=== PATIENT | female | born 1970 | race African-American/Black ===

== ENCOUNTER 2018-04-21 18:51 | Emergency (ER) | payer MEDICAID, OTHER ==
[~2018-04-21] VITALS: Ht 167.6 cm; Wt 74.8 kg
[2018-04-21 20:13] LABS: Urine Bacteria NONE SEEN /hpf (None Seen); Urine Blood Negative /uL (Negative); Urine Specific Gravity 1.028 (1.001-1.035); Urine WBC <1 /hpf (0 - 5)
[2018-04-21] MEDS ORDERED: MORPHINE SULFATE 10 MG/ML INJ 1ML SDV IV ONE (20:45)
[2018-04-21] MEDS ORDERED: ONDANSETRON HCL 4 MG/2 ML VIAL IV ONE (20:45)
[2018-04-21 21:48] LABS: Basophils # (auto) 0 uL; Basophils % (auto) 0.6 % (0.0-2.0); Eosinophils # (auto) 0.1 uL; Eosinophils % (auto) 1.4 % (0.0-7.0); Hematocrit 42.5 % (36.0-46.0); Hemoglobin 13.5 g/dL (12.2-16.2); Lymphocytes # (auto) 2.4 uL; Lymphocytes % (auto) 53.6 % (10.0-50.0); Mean Corpuscular Hemoglobin 27.9 pg (28.0-32.0); Mean Corpuscular Hgb Conc. 31.7 g/dL (32.0-36.0); Mean Corpuscular Volume 87.9 fL (80.0-100.0); Monocytes # (auto) 0.5 uL; Monocytes % (auto) 10.9 % (0.0-12.0); Neutrophils # (auto) 1.5 uL; Neutrophils % (auto) 33.5 % (37.0-80.0); Nucleated Red Blood Cells % 0.1 %; Platelet Count (auto) 230 10^3/uL (140-450); Red Blood Cells 4.84 10^6/uL (4.0-5.20); Red Cell Distribution Width 13.3 % (11.8-14.3); White Blood Cell 4.6 10^3/uL (4.4-10.8)
[2018-04-21 22:05] LABS: Chloride 107 mmol/L (98-107); Potassium 3.3 mmol/L (3.5-5.1); Sodium 138 mmol/L (136-145)
[2018-04-21 22:09] LABS: Alanine Aminotransferase 17 U/L (13-56); Albumin 3.6 g/dL (3.4-5.0); Alkaline Phosphatase 53 U/L (45-117); Anion Gap 5 (5-15); Aspartate Aminotransferase 11 U/L (15-37); Bilirubin, Total 0.2 mg/dL (0.2-1.0); Blood Urea Nitrogen 13 mg/dL (7-18); Calcium 8.1 mg/dL (8.5-10.1); Carbon Dioxide 26 mmol/L (21-32); GFR African American 126 mL/min; GFR Non-African American 104 mL/min; Glucose 87 mg/dL (74-106); Total Protein 7.7 g/dL (6.4-8.2)
[2018-04-22] MEDS ORDERED: MORPHINE SULFATE 10 MG/ML INJ 1ML SDV IV ONE (01:00)
[2018-04-22 02:34] VITALS: BP 142/75
== END 2018-04-22 02:43 | disposition home or self-care (01) ==
LOC: EDBD 18:51 → ER 18:55
DX: R07.89 Other chest pain (principal); Z90.89 Acquired absence of other organs
CPT/HCPCS: 36415; 71046; 76705; 80053; 81001; 81025; 83880; 84484; 85025; 94761; 96374; 96375; 96376; 99284; J2270; J2405